=== PATIENT | male | born 1950 | race Caucasian/White ===

== ENCOUNTER 2016-10-07 08:16 | Emergency (ER) | payer MEDICARE, OTHER ==
[2016-10-07] MEDS ORDERED: Sodium Chloride 0.9% 1,000 ML IV SCH (09:00)
--- NOTE | 2016-10-07 09:10 | EDM.PDOC ---
ED HPI GENERAL MEDICAL PROBLEM - General Chief Complaint: Abdominal Pain Stated Complaint: ABDOMINAL PAIN Time Seen by Provider: 10/07/16 08:33 Source of Information: Reports: Patient, RN Notes Reviewed History Limitations: Reports: No Limitations - History of Present Illness INITIAL COMMENTS - FREE TEXT/NARRATIVE: The patient states that he developed right lower quadrant abdominal pain about 2 months ago. He was seen at [facility] in [place], where he states that a CT scan of the abdomen and pelvis demonstrated appendicitis. He underwent an appendectomy, and states that he remained admitted for about 6 or 7 days. By his description, it sounds like his appendix had perforated. After he was discharged, he returned shortly thereafter due to continued right lower quadrant pain, and was readmitted for 2 more days. After his second discharge, he went to [place], [place], where he continued to have pain. He states that he saw a surgeon in [place], who performed a CT scan of the abdomen and pelvis as well as an ultrasound. He states that the surgeon found a "cyst", or pocket of fluid in his right lower quadrant. A drain was placed for about 1 week. Just before removing the drain, he underwent a second CT scan which apparently showed resolution of the fluid collection. He states that the drain was removed about 3 weeks ago. He subsequently returned to [place], but states that he has continued to have right lower quadrant pain. Over the past few weeks, he has not seen anyone. No recent fever, nausea, vomiting, diarrhea, or urinary symptoms. He states that he has been constipated. Right Abdomen Pain Score (Numeric/FACES): 2 - Related Data Allergies Allergy/AdvReac Type Severity Reaction Status Date / Time No Known Allergies Allergy Verified 10/07/16 08:33 Home Meds: Home Meds Aspirin [Halfprin] 81 mg PO DAILY 10/07/16 [History] Cetirizine [ZyrTEC] 10 mg PO DAILY 10/07/16 [History] FLUoxetine [PROzac] 40 mg PO DAILY 10/07/16 [History] Metoprolol Tartrate 25 mg PO DAILY 10/07/16 [History] Omeprazole 40 mg PO DAILY 10/07/16 [History] buPROPion [Wellbutrin SR] 300 mg PO DAILY 10/07/16 [History] Past Medical History HEENT History: Reports: Hard of Hearing, Impaired Vision Other HEENT History: wears eyeglasses Cardiovascular History: Reports: Hypertension Respiratory History: Reports: COPD Gastrointestinal History: Reports: GERD Musculoskeletal History: Reports: Arthritis Psychiatric History: Reports: Anxiety, Depression - Past Surgical History HEENT Surgical History: Reports: Cataract Surgery GI Surgical History: Reports: Appendectomy Social & Family History - Tobacco Use Smoking Status *Q: Former Smoker Years of Tobacco use: 25 Packs/Tins Daily: 3 Month Tobacco Last Used: Quit 1995 - Alcohol Use Alcohol Use History: Yes Alcohol Use Frequency: Socially - Recreational Drug Use Recreational Drug Use: No - Living Situation & Occupation Living situation: Reports: , with Spouse 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 Denies: Diarrhea, Nausea, Vomiting : Reports: No Symptoms Musculoskeletal: Reports: No Symptoms Skin: Reports: No Symptoms Neurological: Reports: No Symptoms Psychiatric: Reports: No Symptoms Hematologic/Lymphatic: Reports: No Symptoms Immunologic: Reports: No Symptoms ED EXAM, GI/ABD - Physical Exam Exam: See Below Exam Limited By: No Limitations General Appearance: Alert, WD/WN, No Apparent Distress Eyes: Bilateral: Normal Appearance, EOMI Ears: Normal External Exam, Hearing Grossly Normal, Normal TMs Nose: Normal Inspection, No Blood Throat/Mouth: Normal Inspection, Normal Lips, Normal Voice, No Airway Compromise Head: Atraumatic, Normocephalic Neck: Normal Inspection, Full Range of Motion Respiratory/Chest: No Respiratory Distress, Lungs Clear, Normal Breath Sounds, No Accessory Muscle Use Cardiovascular: Normal Peripheral Pulses, Regular Rate, Rhythm, No Gallop, No JVD, No Murmur, No Rub GI/Abdominal: Normal Bowel Sounds, Soft, No Organomegaly, No Distention, No Abnormal Bruit, No Mass, Tenderness (Epigastric through left upper quadrant only. Nontender in the right lower quadrant.), Other (3 well-healed laparoscopy scars noted.) (Male) Exam: Deferred Rectal (Males) Exam: Deferred Back Exam: Normal Inspection, Full Range of Motion. No: CVA Tenderness (L), CVA Tenderness (R) Extremities: Normal Inspection, Normal Range of Motion, No Pedal Edema, Normal Capillary Refill Neurological: Alert, Oriented, Normal Cognition, No Motor/Sensory Deficits Psychiatric: Normal Affect Skin Exam: Warm, Dry, Intact, Normal Color, No Rash Lymphatic: No Adenopathy Course - Vital Signs Last Recorded V/S: Last Vital Signs Temp 36.3 C 10/07/16 08:25 Pulse 76 10/07/16 08:25 Resp 16 10/07/16 08:25 BP 126/83 10/07/16 08:25 Pulse Ox 92 L 10/07/16 08:25 - Orders/Labs/Meds Orders: Active Orders 24 hr Category Date Time Status Abdomen Pelvis w Cont [CT] Stat Exams 10/07/16 09:00 Taken Sodium Chloride 0.9% [Normal Saline] 1,000 ml Med 10/07/16 09:00 Active IV ASDIRECTED Sodium Chloride 0.9% [Saline Flush] Med 10/07/16 10:48 Active 10 ml FLUSH ONETIME PRN Medication Orders Sodium Chloride (Normal Saline) 1,000 mls @ 150 mls/hr IV ASDIRECTED TARUN Last Admin: 10/07/16 10:07 Dose: 150 mls/hr Sodium Chloride (Saline Flush) 10 ml FLUSH ONETIME PRN PRN Reason: IV FLUSH Last Admin: 10/07/16 11:01 Dose: 10 ml Labs: Laboratory Tests 10/07/16 10/07/16 10/07/16 Range/Units 09:30 09:30 09:40 WBC 9.28 H (4.23-9.07) K/mm3 RBC 5.32 (4.63-6.08) M/mm3 Hgb 16.2 (13.7-17.5) gm/L Hct 46.1 (40.1-51.0) % MCV 86.7 (79.0-92.2) fl MCH 30.5 (25.7-32.2) pg MCHC 35.1 (32.2-35.5) g/dl RDW Std Deviation 39.9 (35.1-43.9) fL Plt Count 184 (163-337) K/mm3 MPV 9.8 (9.4-12.3) fl Neutrophils % (Manual) 54 (40-60) % Band Neutrophils % 0 (0-10) % Lymphocytes % (Manual) 40 (20-40) % Atypical Lymphs % 0 % Monocytes % (Manual) 3 (2-10) % Eosinophils % (Manual) 3 (0.8-7.0) % Basophils % (Manual) 0 L (0.2-1.2) Platelet Estimate Adequate RBC Morph Comment Normal Sodium 143 (136-145) mEq/L Potassium 4.1 (3.5-5.1) mEq/L Chloride 107 (98-107) mEq/L Carbon Dioxide 24 (21-32) mEq/L Anion Gap 16.1 H (5-15) BUN 11 (7-18) mg/dL Creatinine 1.0 (0.7-1.3) mg/dL Est Cr Clr Drug Dosing 75.30 mL/min Estimated GFR (MDRD) > 60 (>60) mL/min BUN/Creatinine Ratio 11.0 L (14-18) Glucose 122 H (80-115) mg/dL Calcium 8.8 (8.5-10.1) mg/dL Total Bilirubin 1.1 H (0.2-1.0) mg/dL AST 22 (15-37) U/L ALT 37 (16-63) U/L Alkaline Phosphatase 94 (46-116) U/L Total Protein 7.4 (6.4-8.2) g/dl Albumin 3.6 (3.4-5.0) g/dl Globulin 3.8 gm/dL Albumin/Globulin Ratio 1.0 (1-2) Lipase 214 (73-393) U/L Urine Color Yellow (Yellow) Urine Appearance Clear (Clear) Urine pH 7.0 (5.0-8.0) Ur Specific [place] 1.020 (1.005-1.030) Urine Protein Negative (Negative) Urine Glucose (UA) Negative (Negative) Urine Ketones Negative (Negative) Urine Occult Blood Negative (Negative) Urine Nitrite Negative (Negative) Urine Bilirubin Negative (Negative) Urine Urobilinogen 1.0 (0.2-1.0) Ur Leukocyte Esterase Negative (Negative) Urine RBC Not seen (0-5) /hpf Urine WBC Not seen (0-5) /hpf Ur Epithelial Cells Not seen (0-5) /hpf Urine Bacteria Not seen (FEW) /hpf Urine Mucus Not seen (FEW) /hpf Meds: Medications Generic Name Dose Route Start Last Admin Trade Name Freq PRN Reason Stop Dose Admin Sodium Chloride 1,000 mls @ 150 mls/hr 10/07/16 09:00 10/07/16 10:07 Normal Saline IV 150 mls/hr ASDIRECTED TARUN Administration Sodium Chloride 10 ml 10/07/16 10:48 10/07/16 11:01 Saline Flush FLUSH 10 ml ONETIME PRN Administration IV FLUSH Discontinued Medications Generic Name Dose Route Start Last Admin Trade Name Louis PRN Reason Stop Dose Admin Diatrizoate Meglum/Diatrizoate Sod 90 ml 10/07/16 10:48 10/07/16 11:00 Gastrografin 37% PO 10/07/16 10:49 90 ml ONETIME ONE Administration Iopamidol 125 ml 10/07/16 10:48 10/07/16 11:01 Isovue-300 (61%) IVPUSH 10/07/16 10:49 125 ml ONETIME ONE Administration - Radiology Interpretation Free Text/Narrative:: CT of the abdomen and pelvis with oral and IV contrast is read by virtual radiology as " No definite acute abnormality seen to account for symptoms" - Re-Assessments/Exams Free Text/Narrative Re-Assessment/Exam: 10/07/16 12:26 Test results discussed with the patient. Today's workup is entirely unremarkable , and does not expand because of the patient's pain. The patient is speculated that his pain may be radiating from his back. If that is the case, a MRI would be useful. I am referring the patient to the clinic. Departure - Departure Time of Disposition: 12:24 Disposition: Home, Self-Care 01 Condition: Good Clinical Impression: Abdominal pain of unknown etiology - Discharge Information Forms: ED Department Discharge Additional Instructions: You were seen in the emergency room for lower right abdominal pain. Workup in the ER included blood work, a urinalysis, and a CT scan of your abdomen and pelvis. Your entire workup was unremarkable, and does not explain the cause of your pain. No fluid collection or abscess was seen on the CT scan. If your pain persists, follow-up with [place] in the clinic, for further evaluation. If any other problems, please do not hesitate to return to the ER. - My Orders Last 24 Hours: My Active Orders 10/07/16 09:00 Abdomen Pelvis w Cont [CT] Stat Sodium Chloride 0.9% [Normal Saline] 1,000 ml IV ASDIRECTED 10/07/16 10:48 Sodium Chloride 0.9% [Saline Flush] 10 ml FLUSH ONETIME PRN - Assessment/Plan Last 24 Hours: My Active Orders 10/07/16 09:00 Abdomen Pelvis w Cont [CT] Stat Sodium Chloride 0.9% [Normal Saline] 1,000 ml IV ASDIRECTED 10/07/16 10:48 Sodium Chloride 0.9% [Saline Flush] 10 ml FLUSH ONETIME PRN
[2016-10-07] MEDS ORDERED: Sodium Chloride 0.9% 10 ML Syringe FLUSH PRN (10:48)
[2016-10-07] MEDS ORDERED: Iopamidol 612 MG/ML 150 ML Bottle IVPUSH ONE (10:48)
[2016-10-07] MEDS ORDERED: Diatrizoate Meglumine/Diatrizoate Sodium 37% 120 ML Bottle PO ONE (10:48)
[2016-10-07 12:55] VITALS: BP 144/91
--- NOTE | 2016-10-09 14:39 | CT ---
CT abdomen and pelvis Technique: Multiple axial sections were obtained from above the dome of the diaphragm inferiorly through the pubic symphysis. Intravenous and oral contrast was utilized. Delayed images were also obtained through the abdomen and pelvis. Comparison: No previous study. Findings: Mild coronary artery calcification is partially seen. Severe emphysematous changes are seen within both lung bases. Liver shows no focal parenchymal abnormality. Spleen appears within normal limits. Adrenal glands show no nodule. Pancreas is within normal limits. Gallbladder shows no calcified gallstones. No gallbladder wall thickening or biliary duct dilatation is seen. Aorta shows no aneurysmal dilatation. No retroperitoneal adenopathy or mesenteric abnormalities are seen. Delayed images shows contrast excretion from both kidneys as well as into the ureters and bladder. 2 cortical lesions are seen off the left kidney with one having Hounsfield unit measurements of a simple cyst and measures 1.3 cm. Second lesion is slightly hyperintense and has measurements of 1.1 cm which most likely represents a small hemorrhagic cyst. No pelvic mass or adenopathy is seen. Diverticuli are seen within the descending and sigmoid colon without findings of diverticulitis. No free fluid or inflammatory change is seen. Appendix not visualized. Bone window settings were reviewed which shows scattered degenerative change throughout the spine. Spondylolytic defect is seen at L5-S1 with spondylolisthesis. Impression: 1. Severe emphysematous change within both lungs. 2. Diverticulosis within the descending and sigmoid colon without findings of diverticulitis. 3. Hyperdense lesion within the left kidney most likely due to hemorrhagic cyst. 4. Other incidental findings as noted above. Nothing acute is identified. Diagnostic code #2 I agree with preliminary report issued by [employer] ([employer] preliminary report dictated on 10/07/16, 12:53 PM Central Time)
== END 2016-10-07 12:53 | disposition home or self-care (01) ==
LOC: JD.ED 08:16
DX: R10.9 Unspecified abdominal pain (principal); I10 Essential (primary) hypertension; J44.9 Chronic obstructive pulmonary disease, unspecified; F41.8 Other specified anxiety disorders; K21.9 Gastro-esophageal reflux disease without esophagitis; H54.7 Unspecified visual loss; F32.9 Major depressive disorder, single episode, unspecified; Z98.49 Cataract extraction status, unspecified eye; Z90.49 Acquired absence of other specified parts of digestive tract; Z79.82 Long term (current) use of aspirin; Z79.899 Other long term (current) drug therapy; Z87.891 Personal history of nicotine dependence
CPT/HCPCS: 36415; 74177; 80053; 81001; 83690; 85025; 96360; 96361; 99284; J7040; J7050; Q9963; Q9967